=== PATIENT | female | born 1965 | race Caucasian/White ===

== ENCOUNTER 2021-02-04 17:49 | Emergency (ER) | payer BC ==
--- NOTE | 2021-02-04 18:45 | ERPHSYRPT ---
- History of Present Illness Historian: patient Exam Limitations: no limitations Patient Subjective Stated Complaint: Abdominal pain Triage Nursing Assessment: Patient brought back to ED and transferred self to bed. Patient A+O X3. Patient's skin flushed, warm and dry. Patient complains of dull aching abdominal pain 06/24 that stated this am. Patient states the pain is in her rectum from where she feels like she needs to have a BM. Abdomen soft and round with BS X 4. Physician History: Patient is a 55-year-old white female who presents with the feeling of needing to have a bowel movement. She has been unable to she seems very uncomfortable the pain is centered in the rectum. This started yesterday. She denies any nausea or vomiting. Timing/Duration: yesterday Activities at Onset: none Quality: aching, throbbing Abdominal Pain Onset Location: other (Perirectal) Severity of Pain-Max: severe Severity of Pain-Current: moderate Modifying Factors: Improves With: nothing Associated Symptoms: denies symptoms Previous symptoms: no prior history Allergies/Adverse Reactions: codeine Allergy (Verified 02/04/21 18:12) Sulfa (Sulfonamide Antibiotics) Allergy (Verified 02/04/21 18:12) Home Medications: Multivitamin [Multi-Vitamin Daily] 1 tab PO DAILY 02/04/21 [History] Hx Influenza Vaccination/Date Given: Yes Hx Pneumococcal Vaccination/Date Given: No Immunizations Up to Date: Yes Travel Risk - International Travel Have you traveled outside of the country in past 3 weeks: No - Coronavirus Screening Are you exhibiting any of the following symptoms?: No Close contact with a COVID-19 positive Pt in past 14-21 Days: No - Vaccine Status Have you recieved a Covid-19 vaccination: Yes [employer] Mel[employer] 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 - Vaccination Dates Date of 2cond Vaccination (if applicable): N/a - Review of Systems Constitutional: No Fever, No Chills Eyes: No Symptoms Ears, Nose, & Throat: No Symptoms Respiratory: No Cough, No Dyspnea Cardiac: No Chest Pain, No Edema, No Syncope Abdominal/Gastrointestinal: Other (Rectal pain), No Abdominal Pain, No Nausea, No Vomiting, No Diarrhea Genitourinary Symptoms: No Dysuria Musculoskeletal: No Back Pain, No Neck Pain Skin: No Rash Neurological: No Dizziness, No Focal Weakness, No Sensory Changes Psychological: No Symptoms Endocrine: No Symptoms All Other Systems: Reviewed and Negative - Past Medical History Pertinent Past Medical History: Yes Neurological History: No Pertinent History ENT History: No Pertinent History Cardiac History: No Pertinent History Respiratory History: No Pertinent History Endocrine Medical History: No Pertinent History Musculoskeletal History: No Pertinent History GI Medical History: No Pertinent History, Esophageal Disorder Psycho-Social History: No Pertinent History Female Reproductive Disorders: No Pertinent History - Past Surgical History Past Surgical History: Yes Neuro Surgical History: No Pertinent History Cardiac: No Pertinent History Respiratory: No Pertinent History Gastrointestinal: No Pertinent History Genitourinary: No Pertinent History Musculoskeletal: No Pertinent History Female Surgical History: Dilation & Curettage - Social History Smoking Status: Never smoker Exposure to second hand smoke: Yes Drug Use: none Patient Lives Alone: No - Female History Hx Last Menstrual Period: ablation Hx Now: No - Nursing Vital Signs Nursing Vital Signs: Initial Vital Signs Temperature 99.8 F 02/04/21 18:13 Pulse Rate 81 02/04/21 18:13 Respiratory Rate 18 02/04/21 18:13 Blood Pressure 124/72 02/04/21 18:13 O2 Sat by Pulse Oximetry 98 02/04/21 18:13 Pain Scale Pain Intensity 3 - Physical Exam General Appearance: no apparent distress, alert Eye Exam: PERRL/EOMI, eyes nml inspection Ears, Nose, Throat Exam: normal ENT inspection, pharynx normal, moist mucous membranes Neck Exam: normal inspection, non-tender, supple, full range of motion Respiratory Exam: normal breath sounds, lungs clear, No respiratory distress Cardiovascular Exam: regular rate/rhythm, normal heart sounds Gastrointestinal/Abdomen Exam: soft, No tenderness, No mass Rectal Exam: other (Impacted stool) Back Exam: normal inspection, normal range of motion, No CVA tenderness, No vertebral tenderness Extremity Exam: normal inspection, normal range of motion, pelvis stable Neurologic Exam: alert, oriented x 3, cooperative, normal mood/affect, nml cerebellar function, sensation nml, No motor deficits Skin Exam: normal color, warm, dry SpO2: 98 - Course Nursing assessment & vital signs reviewed: Yes - Radiology Exams Abdomen X-ray Interpretation: Interpreted by me, Other (KUB shows a large rectal impaction) Ordered Tests: Active Orders 24 hr Category Date Time Status Enema STAT Care 02/04/21 19:50 Active KUB Stat Exams 02/04/21 18:46 Completed - Progress Progress: improved - Departure Departure Disposition: Home Clinical Impression: Fecal impaction in rectum Condition: Stable Critical Care Time: No Referrals: MERON BARCLAY MD [Primary Care Provider] - Instructions: High Fiber Diet, Constipation, Adult (DC)
--- NOTE | 2021-02-04 20:11 | XRAY ---
Indication: Abdomen pain. Constipation. Comparison: None KUB nonacute and nonobstructed with mild rectal impaction. Solid organs, osseous structures, and lung bases unremarkable.
[2021-02-04 21:07] VITALS: BP 126/74; PULSE 91; O2SAT 99
== END 2021-02-04 21:07 | disposition home or self-care (01) ==
LOC: ED 17:49
DX: K56.41 Fecal impaction (principal)
CPT/HCPCS: 74018; 99284

== ENCOUNTER 2021-04-10 15:29 | Emergency (ER) | payer BC ==
[2021-04-10] MEDS ORDERED: BACIGUENT PACKET TP ONE (15:59)
[2021-04-10] MEDS ORDERED: BACIGUENT PACKET ONE (16:02)
--- NOTE | 2021-04-10 16:16 | ERPHSYRPT ---
- History of Present Illness Time Seen by Provider: 04/10/21 16:11 Source: patient Exam Limitations: no limitations Patient Subjective Stated Complaint: pt has burn to left foot Triage Nursing Assessment: pt has hot coffee water fall on left foot, she has blisters to top of left foot with reddness Physician History: Patient was working in the rain and had wet shoes and socks on which she spilled an extremely hot water on her left foot. When she removed her sock and shoe she found the area to be blistered. The area involved is primarily the first 3 toes and the distal portion of the dorsum of the foot. Timing/Duration: today Quality: painful Severity: moderate Location: feet Possible Causes: other (Partial-thickness burn to the first 3 toes and the distal foot dorsum of the right caused by hot liquid) Allergies/Adverse Reactions: codeine Allergy (Verified 04/10/21 15:45) Sulfa (Sulfonamide Antibiotics) Allergy (Verified 04/10/21 15:45) Home Medications: Multivitamin [Multi-Vitamin Daily] 1 tab PO DAILY 02/04/21 [History] Hx Tetanus, Diphtheria Vaccination/Date Given: Yes (03/2020) Hx Influenza Vaccination/Date Given: Yes Hx Pneumococcal Vaccination/Date Given: No Immunizations Up to Date: Yes Travel Risk - International Travel Have you traveled outside of the country in past 3 weeks: No - Coronavirus Screening Are you exhibiting any of the following symptoms?: No Close contact with a COVID-19 positive Pt in past 14-21 Days: No - Vaccine Status Have you recieved a Covid-19 vaccination: Yes 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 - Vaccination Dates Date of 2cond Vaccination (if applicable): february - Review of Systems Constitutional: No Fever, No Chills Eyes: No Symptoms Ears, Nose, & Throat: No Symptoms Respiratory: No Cough, No Dyspnea Cardiac: No Chest Pain, No Edema, No Syncope Abdominal/Gastrointestinal: No Abdominal Pain, No Nausea, No Vomiting, No Diarrhea Genitourinary Symptoms: No Dysuria Musculoskeletal: No Back Pain, No Neck Pain Skin: No Rash Neurological: No Dizziness, No Focal Weakness, No Sensory Changes Psychological: No Symptoms Endocrine: No Symptoms All Other Systems: Reviewed and Negative - Past Medical History Pertinent Past Medical History: Yes Neurological History: No Pertinent History ENT History: No Pertinent History Cardiac History: No Pertinent History Respiratory History: No Pertinent History Endocrine Medical History: No Pertinent History Musculoskeletal History: No Pertinent History GI Medical History: No Pertinent History, Esophageal Disorder Psycho-Social History: No Pertinent History Female Reproductive Disorders: No Pertinent History - Past Surgical History Past Surgical History: Yes Neuro Surgical History: No Pertinent History Cardiac: No Pertinent History Respiratory: No Pertinent History Gastrointestinal: No Pertinent History Genitourinary: No Pertinent History Musculoskeletal: No Pertinent History Female Surgical History: Dilation & Curettage - Social History Smoking Status: Never smoker Exposure to second hand smoke: No Drug Use: none Patient Lives Alone: No - Female History Hx Last Menstrual Period: post Hx Now: No - Nursing Vital Signs Nursing Vital Signs: Initial Vital Signs Temperature 98.2 F 04/10/21 15:39 Pulse Rate 79 04/10/21 15:39 Respiratory Rate 18 04/10/21 15:39 Blood Pressure 148/115 04/10/21 15:39 O2 Sat by Pulse Oximetry 99 04/10/21 15:39 Pain Scale Pain Intensity 3 - Physical Exam General Appearance: moderate distress Eye Exam: PERRL/EOMI, eyes nml inspection Ears, Nose, Throat Exam: normal ENT inspection Neck Exam: normal inspection, supple Respiratory Exam: airway intact, No respiratory distress Back Exam: normal inspection, normal range of motion Extremity Exam: other (Blistering to the distal portion of the left foot and the first 3 toes only on the dorsum.) Neurologic Exam: alert, oriented x 3, cooperative SpO2 Interpretation: normal SpO2: 99 O2 Delivery: Room Air - Course Nursing assessment & vital signs reviewed: Yes Ordered Tests: Medication Summary Discontinued Medications Generic Name Dose Route Start Last Admin Trade Name Levyq PRN Reason Stop Dose Admin Bacitracin Zinc 0.9 gm 04/10/21 15:59 04/10/21 16:03 Baciguent Packet TP 04/10/21 16:00 1 gm STAT ONE Administration Bacitracin Zinc Confirm 04/10/21 16:02 Baciguent Packet Administered 04/10/21 16:03 Dose 1 gm .ROUTE .STK-MED ONE - Progress Progress: improved - Departure Departure Disposition: Home Clinical Impression: Partial thickness burn of foot Condition: Stable Critical Care Time: No Referrals: MERON BARCLAY MD [Primary Care Provider] - Instructions: Skin Patiño Prescriptions: Cephalexin Mh 500 mg [Keflex 500 mg] 500 mg PO TID #21 capsule
[2021-04-10 16:41] VITALS: BP 147/82; PULSE 78; O2SAT 98
== END 2021-04-10 16:42 | disposition home or self-care (01) ==
LOC: ED 15:29
DX: T25.222A Burn of second degree of left foot, initial encounter (principal); X10.0XXA Contact with hot drinks, initial encounter
CPT/HCPCS: 99283; A9270-GY

== ENCOUNTER 2023-03-19 05:57 | Day surgery (SDC) | payer BC ==
[2023-03-19] MEDS ORDERED: Lactated Ringers 1,000 ML IV SCH (06:30)
[2023-03-19] MEDS ORDERED: Versed 2 MG/2 ML Injection ONE (07:29)
[2023-03-19] MEDS ORDERED: DIPRIVAN 200 MG/20 ML IV ONE (07:29)
[2023-03-19] MEDS ORDERED: Xylocaine-Mpf 2% 5 Ml Vial ONE (07:29)
[2023-03-19 08:08] VITALS: O2SAT 97
[2023-03-19 08:22] VITALS: BP 112/69; PULSE 67
--- NOTE | 2023-03-19 09:43 | OP ---
SURGERY DATE/TIME: 03/19/2023 0729 PREOPERATIVE DIAGNOSIS: Screening exam. POSTOPERATIVE DIAGNOSIS: Moderate sigmoid diverticulosis otherwise normal colon. PROCEDURE: Colonoscopy. SURGEON: Dr. Rivera. ANESTHESIA: MAC. Medications given by anesthesia department. HISTORY: The patient is a 57-year-old white female presenting now for screening colonoscopy. She was appraised of the risks of the procedure including the risk of perforation, phlebitis, untoward reaction to medication, bleeding and missed lesions. The patient verbalized her understanding and desired to have the procedure performed. DESCRIPTION OF PROCEDURE: The patient was given the medications by the anesthesia department. She had continuous pulse oximetry, ECG monitoring, intermittent blood pressure monitoring during the examination. She was placed in the left lateral decubitus position. A digital rectal examination was performed and revealed normal anal sphincter tone and no masses. The flexible Olympus pediatric colonoscope was used to intubate the rectum. A view of the colon was developed sequentially to the cecum. Upon insertion and withdrawal, including a retroflex view in the rectum was noted to be moderate sigmoid diverticulosis but no other mucosal lesions were encountered. The scope was removed from the patient who tolerated the procedure well and was sent back to OP recovery in good condition. The prep was noted to be good.
== END 2023-03-19 08:37 | disposition home or self-care (01) ==
LOC: SDC 05:57
PROVIDERS: ATTEND Family Medicine
DX: Z12.11 Encounter for screening for malignant neoplasm of colon (principal); K57.30 Diverticulosis of large intestine without perforation or abscess without bleeding
CPT/HCPCS: J2250; J2704

== ENCOUNTER 2023-03-19 12:45 | Observation (INO) | payer BC ==
[2023-03-27] MEDS ORDERED: EXPAREL 133 MG/10 ML VIAL IJ ONE (07:21)
[2023-03-27] MEDS ORDERED: Transderm Scop 1.5MG Patch TOP PRN (07:37)
[2023-03-27] MEDS ORDERED: Pepcid 20 MG VIAL IV ONE ×2 (07:37→07:47)
[2023-03-27] MEDS ORDERED: Reglan 10 MG/2 ML IV ONE (07:37)
[2023-03-27] MEDS ORDERED: CLINDAMYCIN-D5W 900 MG/50 ML*** 900 MG/50 ML BAG IV ONE (07:47)
[2023-03-27] MEDS ORDERED: Reglan 10 MG/2 ML ONE ×2 (07:47→15:56)
[2023-03-27] MEDS ORDERED: Transderm Scop 1.5MG Patch ONE (07:47)
[2023-03-27] MEDS ORDERED: Lactated Ringers 1,000 ML IV ONE ×2 (07:48→12:15)
[2023-03-27] MEDS: Lactated Ringers 1,000 ML IV SCH ×2 (07:57→22:04)
[2023-03-27] MEDS ORDERED: CLINDAMYCIN-D5W 900 MG/50 ML*** 900 MG/50 ML BAG IV SCH (08:00)
[2023-03-27 08:06] LABS: Hematocrit 44.1 % (35-47); Mean Cell Volume 86.5 fL (78-100); Mean Corpuscular Hemoglobin 27.5 pg (26-32); Mean Corpuscular Hgb Concent. 31.7 g/dL (32-36); Mean Platelet Volume 9.3 fL (7.5-11.0); Platelet Count 262 x10^3/uL (150-450); Red Cell Distribution Width 12.9 % (11.5-14.0); White Blood Count 6.6 x10^3/uL (4.0-10.5)
[2023-03-27 08:18] LABS: HCG SERUM TEST NEGATIVE (NEGATIVE)
[2023-03-27 08:27] LABS: ALBUMIN 3.9 g/dL (3.5-5.0); ALKALINE PHOSPHATASE 157 U/L (38-126); ANION GAP 11.7 MEQ/L (5-15); BLOOD UREA NITROGEN 12 mg/dL (7-17); CHLORIDE 105 mmol/L (98-107); Calcium 8.9 mg/dL (8.4-10.2); Carbon Dioxide 30 mmol/L (22-30); Creatinine 1 0.68 mg/dL (0.52-1.04); EST GLOMERULAR FILTRATION RATE > 60.0 ML/MIN; Glucose 99 mg/dL (74-106); Potassium 3.7 mmol/L (3.5-5.1); SGOT/AST 25 U/L (14-36); SGPT/ALT 20 U/L (0-35); SODIUM 143 mmol/L (137-145); Total Protein 7.2 g/dL (6.3-8.2)
[2023-03-27 08:50] LABS: ABO TYPING O; Antibody Screen NEGATIVE (NEGATIVE); RH TYPING POSITIVE
[2023-03-27] MEDS ORDERED: Versed 2 MG/2 ML Injection ONE (11:20)
[2023-03-27] MEDS ORDERED: SUBLIMAZE 100 MCG/2 ML ONE (11:20)
[2023-03-27] MEDS ORDERED: DIPRIVAN 200 MG/20 ML IV ONE (11:20)
[2023-03-27] MEDS ORDERED: Xylocaine-Mpf 2% 5 Ml Vial ONE (11:20)
[2023-03-27] MEDS ORDERED: TORAdol 30 mg Injection ONE (11:21)
[2023-03-27] MEDS ORDERED: Decadron 4 MG INJ ONE (11:21)
[2023-03-27] MEDS ORDERED: Zofran 4 MG/2 ML VIAL ONE ×2 (11:21→14:15)
[2023-03-27] MEDS ORDERED: Zemuron 100 MG/10 ML ONE ×2 (11:21→12:57)
[2023-03-27] MEDS ORDERED: PHENYLEPHRINE HCL ONE (11:30)
[2023-03-27] MEDS ORDERED: Astramorph-Pf 5 MG/10 ML ONE (11:31)
[2023-03-27] MEDS ORDERED: Ephedrine Sulfate 50 MG/ML ONE (11:47)
[2023-03-27] MEDS ORDERED: Sensorcaine 0.25% 10 ML ONE (12:08)
[2023-03-27] MEDS ORDERED: OFIRMEV 100 ML IV ONE (12:08)
[2023-03-27] MEDS ORDERED: XYLOCAINE 1%/Epi 1:100000 MDV 20 ML ONE (12:43)
[2023-03-27] MEDS ORDERED: BRIDION 200MG/2ML IV ONE (13:19)
[2023-03-27] MEDS ORDERED: NON-FORMULARY ITEM (Fluticasone Propionate [Flonase Allergy Relief] 9.9 ML Spray.Susp) NS PRN (15:36)
[2023-03-27] MEDS ORDERED: Flonase NASAL NS PRN (15:37)
[2023-03-27] MEDS ORDERED: DEMEROL 50 MG IV PRN (16:15)
[2023-03-27] MEDS ORDERED: Sodium Chloride 0.9% 10 ML FLUSH Syringe IJ PRN (16:15)
[2023-03-27] MEDS ORDERED: Narcan 0.4 MG/ML IV PRN (16:15)
[2023-03-27] MEDS ORDERED: MORPHINE SULFATE 2 MG INJ IV PRN (16:15)
[2023-03-27] MEDS ORDERED: PERCOCET TABLET 5/325MG PO PRN (16:15)
[2023-03-27] MEDS ORDERED: Zofran 4 MG/2 ML VIAL IV PRN (16:15)
[2023-03-27] MEDS ORDERED: Nubain 10 MG/ML IV PRN (16:15)
[2023-03-27 18:25] LABS: Hematocrit 43.1 % (35-47); Hemoglobin 13.5 g/dL (12.0-16.0); Mean Corpuscular Hemoglobin 27.6 pg (26-32); Mean Corpuscular Hgb Concent. 31.3 g/dL (32-36); Mean Platelet Volume 9.3 fL (7.5-11.0); Platelet Count 252 x10^3/uL (150-450); White Blood Count 17.9 x10^3/uL (4.0-10.5)
[2023-03-27] MEDS: THERAGRAN MULTIVITAMIN PO SCH (18:48)
[2023-03-27] MEDS: CLARITIN 10 MG PO SCH (18:48)
[2023-03-27] MEDS: CLINDAMYCIN-D5W 900 MG/50 ML*** 900 MG/50 ML BAG IV SCH (18:57)
[2023-03-28] MEDS: CLINDAMYCIN-D5W 900 MG/50 ML*** 900 MG/50 ML BAG IV SCH (00:35)
[2023-03-28 04:51] LABS: Hematocrit 40.9 % (35-47); Hemoglobin 12.6 g/dL (12.0-16.0); Mean Cell Volume 86.8 fL (78-100); Mean Corpuscular Hemoglobin 26.8 pg (26-32); Mean Corpuscular Hgb Concent. 30.8 g/dL (32-36); Mean Platelet Volume 9.9 fL (7.5-11.0); Platelet Count 257 x10^3/uL (150-450); Red Blood Count 4.71 x10^6/uL (4.1-5.4); Red Cell Distribution Width 13.2 % (11.5-14.0); White Blood Count 14.4 x10^3/uL (4.0-10.5)
[2023-03-28 05:28] LABS: ALBUMIN 3.6 g/dL (3.5-5.0); ALKALINE PHOSPHATASE 144 U/L (38-126); ANION GAP 12.5 MEQ/L (5-15); BLOOD UREA NITROGEN 15 mg/dL (7-17); CHLORIDE 103 mmol/L (98-107); Calcium 8.7 mg/dL (8.4-10.2); Carbon Dioxide 27 mmol/L (22-30); EST GLOMERULAR FILTRATION RATE > 60.0 ML/MIN; Glucose 135 mg/dL (74-106); Potassium 4.2 mmol/L (3.5-5.1); SGOT/AST 25 U/L (14-36); SGPT/ALT 20 U/L (0-35); SODIUM 138 mmol/L (137-145); Total Protein 6.6 g/dL (6.3-8.2)
--- NOTE | 2023-03-28 07:50 | PCM.NOTE ---
Date and Time: 03/28/2348 Subjective Assessment: pod 1 sp abimael pt resting in bed and doing well tolerating clear liquid. vss afebrile abd; soft incision c/d/intact ext; no clubbing cyanosis or edema hgb; 12 cr 0.8 ap sp abimael b/l salpingectomy anticipate discharge home today should fu in office in 2 wks will dc iv and landrum Objective Exam Wound Assessment: Skin/Wound Assessment Wound/Incision Assessment Start: 03/27/23 20:56 Text: Status: Active Freq: Q4H Protocol: Document 03/28/23 03:52 SM (Rec: 03/28/23 03:53 SM [id number]) Wound/Incision Assessment Lower Abdomen Wound Assessment Shift Assessment Wound Type Incision Wound Stage Non Pressure Wound Drainage Amount None Wound Photo Photo Taken No OBJECTIVE DATA Vital Signs: Vital Signs - 24 hr Temp Pulse Resp BP Pulse Ox 03/28/23 07:08 97.1 F 84 16 99/56 99 03/28/23 06:43 93 L 03/28/23 04:00 97.9 F 81 18 94/55 96 03/27/23 22:00 99 03/27/23 20:00 97.7 F 91 H 18 130/60 99 03/27/23 15:15 97.0 F 73 18 140/67 95 03/27/23 07:59 97.8 F 81 16 117/76 95 03/27/23 07:49 97.8 F 81 16 117/76 95 Pain Assessment - Last Documented Pain Intensity 0 Intake and Output: Intake & Output 03/25/23 03/26/23 03/27/23 03/28/23 11:59 11:59 11:59 11:59 Intake Total 649 Output Total 575 Balance 74 Weight 86.6 kg 89.1 kg Lab Results: Lab Results-Last 24 Hours 03/27/23 03/27/23 03/27/23 Range/Units 07:55 07:55 07:55 WBC 6.6 (4.0-10.5) x10^3/uL RBC 5.10 (4.1-5.4) x10^6/uL Hgb 14.0 (12.0-16.0) g/dL Hct 44.1 (35-47) % MCV 86.5 (78-100) fL MCH 27.5 (26-32) pg MCHC 31.7 L (32-36) g/dL RDW 12.9 (11.5-14.0) % Plt Count 262 (150-450) x10^3/uL MPV 9.3 (7.5-11.0) fL Sodium 143 (137-145) mmol/L Potassium 3.7 (3.5-5.1) mmol/L Chloride 105 (98-107) mmol/L Carbon Dioxide 30 (22-30) mmol/L Anion Gap 11.7 (5-15) MEQ/L BUN 12 (7-17) mg/dL Creatinine 0.68 (0.52-1.04) mg/dL Estimated GFR > 60.0 ML/MIN Glucose 99 (74-106) mg/dL Calcium 8.9 (8.4-10.2) mg/dL Total Bilirubin 0.40 (0.2-1.3) mg/dL AST 25 (14-36) U/L ALT 20 (0-35) U/L Alkaline Phosphatase 157 H (38-126) U/L Serum Total Protein 7.2 (6.3-8.2) g/dL Albumin 3.9 (3.5-5.0) g/dL Serum HCG, Qual (NEGATIVE) ABO Group O Rh Factor POSITIVE Antibody Screen NEGATIVE (NEGATIVE) 03/27/23 03/27/23 03/28/23 Range/Units 07:55 18:22 04:13 WBC 17.9 H 14.4 H (4.0-10.5) x10^3/uL RBC 4.90 4.71 (4.1-5.4) x10^6/uL Hgb 13.5 12.6 (12.0-16.0) g/dL Hct 43.1 40.9 (35-47) % MCV 88.0 86.8 (78-100) fL MCH 27.6 26.8 (26-32) pg MCHC 31.3 L 30.8 L (32-36) g/dL RDW 13.0 13.2 (11.5-14.0) % Plt Count 252 257 (150-450) x10^3/uL MPV 9.3 9.9 (7.5-11.0) fL Sodium (137-145) mmol/L Potassium (3.5-5.1) mmol/L Chloride (98-107) mmol/L Carbon Dioxide (22-30) mmol/L Anion Gap (5-15) MEQ/L BUN (7-17) mg/dL Creatinine (0.52-1.04) mg/dL Estimated GFR ML/MIN Glucose (74-106) mg/dL Calcium (8.4-10.2) mg/dL Total Bilirubin (0.2-1.3) mg/dL AST (14-36) U/L ALT (0-35) U/L Alkaline Phosphatase (38-126) U/L Serum Total Protein (6.3-8.2) g/dL Albumin (3.5-5.0) g/dL Serum HCG, Qual NEGATIVE (NEGATIVE) ABO Group Rh Factor Antibody Screen (NEGATIVE) 03/28/23 Range/Units 04:13 WBC (4.0-10.5) x10^3/uL RBC (4.1-5.4) x10^6/uL Hgb (12.0-16.0) g/dL Hct (35-47) % MCV (78-100) fL MCH (26-32) pg MCHC (32-36) g/dL RDW (11.5-14.0) % Plt Count (150-450) x10^3/uL MPV (7.5-11.0) fL Sodium 138 (137-145) mmol/L Potassium 4.2 (3.5-5.1) mmol/L Chloride 103 (98-107) mmol/L Carbon Dioxide 27 (22-30) mmol/L Anion Gap 12.5 (5-15) MEQ/L BUN 15 (7-17) mg/dL Creatinine 0.80 (0.52-1.04) mg/dL Estimated GFR > 60.0 ML/MIN Glucose 135 H (74-106) mg/dL Calcium 8.7 (8.4-10.2) mg/dL Total Bilirubin 0.50 (0.2-1.3) mg/dL AST 25 (14-36) U/L ALT 20 (0-35) U/L Alkaline Phosphatase 144 H (38-126) U/L Serum Total Protein 6.6 (6.3-8.2) g/dL Albumin 3.6 (3.5-5.0) g/dL Serum HCG, Qual (NEGATIVE) ABO Group Rh Factor Antibody Screen (NEGATIVE) Multi-Disciplinary Progress Notes: Multi-Disciplinary Progress Notes 03/27/23 18:56 Respiratory Note by Daniela Strong Pt getting sick. Incentive spirometry not done at this time. Will check on her later. Initialized on 03/27/23 18:56 - END OF NOTE Assessment/Plan (1) Leiomyoma of cervix Current Visit: Yes Status: Acute Code(s): D25.9 - LEIOMYOMA OF UTERUS, UNSPECIFIED (2) Status post total abdominal hysterectomy Current Visit: Yes Status: Acute Code(s): Z90.710 - ACQUIRED ABSENCE OF BOTH CERVIX AND UTERUS
--- NOTE | 2023-03-28 07:56 | PCM.DS ---
Discharge Summary Date of Admission: 03/27/23 07:20 Admitting Physician: MERON BARCLAY Primary Care Provider: MERON BARCLAY Allergies Allergies latex Allergy (Intermediate, Verified 03/27/23 15:42) Itching aspartame Allergy (Mild, Verified 03/27/23 15:42) Swelling of Tongue and Lips Sulfa (Sulfonamide Antibiotics) Allergy (Mild, Verified 03/27/23 15:42) diphenhydramine [From Benadryl] Adverse Reaction (Intermediate, Verified 03/27/23 15:42) [facility] Summary - Hospital Course Hospital Course: pt admitted on march 27 and underwent total abdominal hysterectomy b/l salpingectomy secondary to large cervical aborting myoma and underwent procedure without complication. during postop period did well, able to ambulate and tolerate diet. incision healing well and was advised to fu in office in 2 wks. pt was sent rx of percocet and clindamycin. all questions answered to her satisfaction. - Vitals & Intake/Output Vital Signs: Vital Signs Temperature 97.1 F 03/28/23 07:08 Pulse Rate 84 03/28/23 07:08 Respiratory Rate 16 03/28/23 07:08 Blood Pressure 99/56 03/28/23 07:08 O2 Sat by Pulse Oximetry 99 03/28/23 07:08 Intake & Output: Intake & Output 03/25/23 03/26/23 03/27/23 03/28/23 11:59 11:59 11:59 11:59 Intake Total 649 Output Total 575 Balance 74 Weight 86.6 kg 89.1 kg - Lab Result Diagrams: 03/28/23 04:13 03/28/23 04:13 Lab Results-Last 24 Hrs: Lab Results-Last 24 Hours 03/27/23 03/27/23 03/27/23 Range/Units 07:55 07:55 07:55 WBC 6.6 (4.0-10.5) x10^3/uL RBC 5.10 (4.1-5.4) x10^6/uL Hgb 14.0 (12.0-16.0) g/dL Hct 44.1 (35-47) % MCV 86.5 (78-100) fL MCH 27.5 (26-32) pg MCHC 31.7 L (32-36) g/dL RDW 12.9 (11.5-14.0) % Plt Count 262 (150-450) x10^3/uL MPV 9.3 (7.5-11.0) fL Sodium 143 (137-145) mmol/L Potassium 3.7 (3.5-5.1) mmol/L Chloride 105 (98-107) mmol/L Carbon Dioxide 30 (22-30) mmol/L Anion Gap 11.7 (5-15) MEQ/L BUN 12 (7-17) mg/dL Creatinine 0.68 (0.52-1.04) mg/dL Estimated GFR > 60.0 ML/MIN Glucose 99 (74-106) mg/dL Calcium 8.9 (8.4-10.2) mg/dL Total Bilirubin 0.40 (0.2-1.3) mg/dL AST 25 (14-36) U/L ALT 20 (0-35) U/L Alkaline Phosphatase 157 H (38-126) U/L Serum Total Protein 7.2 (6.3-8.2) g/dL Albumin 3.9 (3.5-5.0) g/dL Serum HCG, Qual (NEGATIVE) ABO Group O Rh Factor POSITIVE Antibody Screen NEGATIVE (NEGATIVE) 03/27/23 03/27/23 03/28/23 Range/Units 07:55 18:22 04:13 WBC 17.9 H 14.4 H (4.0-10.5) x10^3/uL RBC 4.90 4.71 (4.1-5.4) x10^6/uL Hgb 13.5 12.6 (12.0-16.0) g/dL Hct 43.1 40.9 (35-47) % MCV 88.0 86.8 (78-100) fL MCH 27.6 26.8 (26-32) pg MCHC 31.3 L 30.8 L (32-36) g/dL RDW 13.0 13.2 (11.5-14.0) % Plt Count 252 257 (150-450) x10^3/uL MPV 9.3 9.9 (7.5-11.0) fL Sodium (137-145) mmol/L Potassium (3.5-5.1) mmol/L Chloride (98-107) mmol/L Carbon Dioxide (22-30) mmol/L Anion Gap (5-15) MEQ/L BUN (7-17) mg/dL Creatinine (0.52-1.04) mg/dL Estimated GFR ML/MIN Glucose (74-106) mg/dL Calcium (8.4-10.2) mg/dL Total Bilirubin (0.2-1.3) mg/dL AST (14-36) U/L ALT (0-35) U/L Alkaline Phosphatase (38-126) U/L Serum Total Protein (6.3-8.2) g/dL Albumin (3.5-5.0) g/dL Serum HCG, Qual NEGATIVE (NEGATIVE) ABO Group Rh Factor Antibody Screen (NEGATIVE) 03/28/23 Range/Units 04:13 WBC (4.0-10.5) x10^3/uL RBC (4.1-5.4) x10^6/uL Hgb (12.0-16.0) g/dL Hct (35-47) % MCV (78-100) fL MCH (26-32) pg MCHC (32-36) g/dL RDW (11.5-14.0) % Plt Count (150-450) x10^3/uL MPV (7.5-11.0) fL Sodium 138 (137-145) mmol/L Potassium 4.2 (3.5-5.1) mmol/L Chloride 103 (98-107) mmol/L Carbon Dioxide 27 (22-30) mmol/L Anion Gap 12.5 (5-15) MEQ/L BUN 15 (7-17) mg/dL Creatinine 0.80 (0.52-1.04) mg/dL Estimated GFR > 60.0 ML/MIN Glucose 135 H (74-106) mg/dL Calcium 8.7 (8.4-10.2) mg/dL Total Bilirubin 0.50 (0.2-1.3) mg/dL AST 25 (14-36) U/L ALT 20 (0-35) U/L Alkaline Phosphatase 144 H (38-126) U/L Serum Total Protein 6.6 (6.3-8.2) g/dL Albumin 3.6 (3.5-5.0) g/dL Serum HCG, Qual (NEGATIVE) ABO Group Rh Factor Antibody Screen (NEGATIVE) - Procedures and Test Procedures and Tests throughout Hospitalization: Therapy Orders & Screens 03/27/23 17:54 Incentive Spirometry TID Comment: Diagnosis: post hysterectomy 03/27/23 19:56 Oxygen Nasal Cannula 2 lpm Comment: Diagnosis: post hysterectomy Discharge Exam Wound Assessment: Skin/Wound Assessment Wound/Incision Assessment Start: 03/27/23 20:56 Text: Status: Active Freq: Q4H Protocol: Document 03/28/23 03:52 SM (Rec: 03/28/23 03:53 SM [id number]) Wound/Incision Assessment Lower Abdomen Wound Assessment Shift Assessment Wound Type Incision Wound Stage Non Pressure Wound Drainage Amount None Wound Photo Photo Taken No Final Diagnosis/Problem List - Final Discharge Diagnosis/Problem (1) Leiomyoma of cervix Current Visit: Yes Status: Acute Code(s): D25.9 - LEIOMYOMA OF UTERUS, UNSPECIFIED (2) Status post total abdominal hysterectomy Current Visit: Yes Status: Acute Code(s): Z90.710 - ACQUIRED ABSENCE OF BOTH CERVIX AND UTERUS - Discharge Disposition: Home, Self-Care Condition: Stable Prescriptions: New clindamycin HCL [Clindamycin HCl] 300 mg PO BID #6 cap Oxycodone HCl/Acetaminophen [Percocet 5-325 mg Tablet] 1 each PO Q6HPRN PRN #20 tablet MDD 4 PRN Reason: Pain No Action Multivitamin [Multi-Vitamin Daily] 1 tab PO DAILY Fluticasone Propionate [Flonase Allergy Relief] 9.9 ml NS DAILY PRN PRN PRN Reason: Allergies Cetirizine HCl [Zyrtec] 10 mg PO DAILY Follow up with: MERON BARCLAY MD [Primary Care Provider] - ANICETO MANCINI DO [ACTIVE STAFF] - 1 Week (keep incision clean and dry with soap and water my go up and down stairs call me with any issues may shower but no bath)
[2023-03-28] MEDS ORDERED: ENOXAPARIN SODIUM SQ SCH (09:00)
--- NOTE | 2023-03-28 09:23 | OP ---
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 PROCEDURES: 1) Total abdominal hysterectomy. 2) Bilateral salpingectomy. SURGEON: Vinnie Rubalcava D.O. SMALL MACHINE BINDERY OPERATOR: Chanell Knowles, surgical assistant certified. ANESTHESIA: General. ESTIMATED BLOOD LOSS: 375 cc. COMPLICATIONS: None. INDICATIONS: The risks, benefits, indications and alternatives of the procedure were reviewed with the patient prior to the procedure. The patient understood the risk of infection, bleeding, bowel injury, bladder injury, pelvic infection and thromboembolic disorder associated with the surgery and desires to have the surgery as a possible means to alleviate her current medical condition. DESCRIPTION OF PROCEDURE AND FINDINGS: At this point the patient is taken to the operating room where she is placed in the supine position, given general anesthesia, prepared and draped in the usual sterile fashion. A Pfannenstiel incision was made approximately 2 cm above the symphysis pubis and extended sharply through the rectus fascia. The fascia was then incised bilaterally with curved Zapata scissors and the muscle of the anterior abdominal wall were in the midline by sharp and blunt dissection. The peritoneum was then grasped between two pickups elevated and entered sharply with Metzenbaum scissors. The pelvis is then examined and noted to have multiple fibroids on the fundal region of the uterus and was noted to be approximately 13 week size uterus. At this point an O'Wan-O'Ac retractor was placed into the incision and the bowel packed away with moist laparotomy sponges. Tenaculum was placed on the fundal portion of the uterus and used to elevate the uterus. From this point the LigaSure was used and there is was clamped over the left utero-ovarian ligament where it was clamped, coagulated, cut and taken down to the round ligament where it to was clamped, coagulated and cut taken to the uterine vasculature on its left side. The anterior lip of the broad ligament was incised along bladder reflection to the midline on its side and the bladder was gently dissected off the lower uterine segment on its side. The same procedure was performed on the right side where the Ligasure was placed over the right utero-ovarian ligament where it was clamped, coagulated and cut and taken down to the round ligament towards the uterine vasculature on its side and the anterior lip of the broad ligament was incised along the bladder reflection to the midline on its side. The bladder was gently dissected off the lower uterine segment and the cervix with a sponge stick. There was noted a bulge on the lower cervical region that was noted to be a fibroid at this point. From this point the uterine arteries were skeletonized bilaterally, clamped with Yoon clamps transected and suture ligated with 0 Vicryl suture. Again hemostasis was assured. The uterosacral ligaments were clamped on both sides, transected and suture ligated in similar fashion. From this point the uterus was initially amputated from its cervical stump region using cautery. After removal initially of the uterus, there appeared to be a large fibroid approximately 5 x 4 cm in dimension which at this point on the lower uterine segment where the bladder had been dissected off the lower uterine segment, there appeared to be a bulge and a vertical incision was made retracting both sides of the incision and the tenaculum used to grasp the fibroid pulling the fibroid in its entirety and was done so without complication. At this point the cervix amputated with cautery after placing Yoon clamps on both sides. The vaginal cuff angles were closed with figure-of-8 sutures of 0 Vicryl and transected ipsilateral Cardinal ligaments. The remainder of the vaginal cuff was closed with a series of interrupted 0 Vicryl figure-of-8 sutures. Hemostasis was assured from this point. The pelvis was then irrigated copiously with warm normal saline. From this point the bilateral fallopian tubes were elevated and were excised using LigaSure. It was clamped, coagulated and cut along the mesosalpinx on both sides and was done so without complication. Hemostasis was obtained. From this point all operative sponges and instruments were removed from the patient's abdomen. The muscles were closed in interrupted fashion with 2-0 chromic suture. The fascia closed with running 0 Vicryl and hemostasis assured. The subcutaneous layer was closed with 3-0 Vicryl sutures and the skin was closed with absorbable regis called INSORB. Sponge, lap, needle and instruments counts were correct x2. The patient was then taken to the recovery room in stable condition.
[2023-03-28] MEDS ORDERED: NON-FORMULARY ITEM (Cetirizine Hcl [Zyrtec] 10 MG Capsule) PO SCH (10:00)
[2023-03-28] MEDS ORDERED: HOLD NARCOTIC ANALGESICS AND SEDATIVES X24 HR MC SCH (10:00)
[2023-03-28] MEDS ORDERED: NON-FORMULARY ITEM (Multivitamin [Multi-Vitamin Daily] 1 EACH Tablet) PO SCH (10:00)
[2023-03-28] MEDS: THERAGRAN MULTIVITAMIN PO SCH (10:02)
[2023-03-28] MEDS: CLARITIN 10 MG PO SCH (10:02)
[2023-03-28 11:45] VITALS: BP 104/56; PULSE 76; O2SAT 100
== END 2023-03-28 15:10 | disposition home or self-care (01) ==
LOC: MED SURG 03-27 07:20 → EDSTATUS 03-27 14:16
PROVIDERS: ADMIT General Practice; ATTEND Obstetrics & Gynecology
DX: D25.9 Leiomyoma of uterus, unspecified (principal); Z20.828 Contact with and (suspected) exposure to other viral communicable diseases; Z79.899 Other long term (current) drug therapy
CPT/HCPCS: 36415; 58150; 64488; 76937; 80053; 84703; 85027; 86850; 86900; 86901; 87086; 94760; G0378; J1100; J1650; J1885; J2250; J2274; J2370; J2405; J2704; J3010; A9270-GY